=== PATIENT | male | born 1975 | race Hispanic/Latino ===

== ENCOUNTER 2022-08-17 18:28 | Emergency (ER) | payer BC, SELFPAY ==
[2022-08-17] MEDS ORDERED: Bacitracin 1 PK ONE ×2 (18:53→18:59)
[2022-08-17] MEDS ORDERED: fentaNYL 50 mcg/mL 1 mL Vial ONE (19:28)
[2022-08-17] MEDS ORDERED: Boostrix 0.5 ML (Tdap) VIAL (>/=7 yrs of age) ONE (19:29)
[2022-08-17] MEDS ORDERED: CEFAZOLIN 2 GM VIAL ONE (19:29)
[2022-08-17 19:32] LABS: #Eosinphils 0.1 thou/uL (0.0-0.7); #Monocytes 0.5 thou/uL (0.11-0.59); #Neutrophils 2.2 thou/uL (1.40-6.50); %Basophils 0.7 % (0.0-1.0); %Lymphocytes 50.9 % (21.0-51.0); %Monocytes 9.3 % (0.0-10.0); %Neutrophils 37.8 % (42.0-75.0); Hemoglobin 15.4 g/dL (14.0-18.0); Mean Corpuscular HGB CONC 36.3 g/dL (32.0-36.0); Mean Corpuscular Hemoglobin 31.6 pg (27.0-31.0); Mean Corpuscular Volume 86.9 fl (78.0-98.0); Mean Platelet Volume 9.9 fL (7.4-10.4); Platelet Count 237 10x3/uL (130-400); RBC Distribution Width 12.2 % (11.5-14.5); Red Blood Cell (RBC) Count 4.88 mill/uL (4.70-6.10); White Blood Cell (WBC) Count 5.8 10x3/uL (4.8-10.8)
[2022-08-17 20:02] LABS: ALT (SGPT) 36 U/L (8-55); AST (SGOT) 24 U/L (5-34); Albumin 4.2 g/dL (3.5-5.0); Alkaline Phosphatase 140 U/L (40-110); Anion Gap 19 mmol/L (10-20); BUN (Urea Nitrogen) 8 mg/dL (8.9-20.6); Bilirubin, Total 0.5 mg/dL (0.2-1.2); Calc. Creatinine Clearance 0 mL/min (70-130); Calcium 8.7 mg/dL (7.8-10.44); Carbon Dioxide 18 mmol/L (22-29); Chloride 105 mmol/L (98-107); Estimated GFR 91; Globulin 3.8 g/dL (2.4-3.5); Glucose 251 mg/dL (70-105); Potassium 3.2 mmol/L (3.5-5.1); Sodium 139 mmol/L (136-145)
== END 2022-08-17 22:15 | disposition short-term general hospital (02) ==
LOC: ERS 18:28
DX: T24.202A Burn of second degree of unspecified site of left lower limb, except ankle and foot, initial encounter (principal); E11.9 Type 2 diabetes mellitus without complications; Z23 Encounter for immunization
CPT/HCPCS: 16020; 80053; 85025; 90471; 90715; 96365; 96375; J3010